=== PATIENT | female | born 1995 | race Caucasian/White ===

== ENCOUNTER 2019-03-25 17:20 | Emergency (ER) | payer BC ==
[~2019-03-25] VITALS: Ht 154.9 cm; Wt 47.7 kg
[2019-03-25 17:58] VITALS: BP 136/79; TEMP 98.1
[2019-03-25] MEDS ORDERED: DOXYCYCLINE HY100 MG PO (18:15)
[2019-03-25 19:06] VITALS: PULSE 72
== END 2019-03-25 19:04 | disposition home or self-care (01) ==
LOC: COL.ER 17:20
DX: S51.851A Open bite of right forearm, initial encounter (principal); W54.0XXA Bitten by dog, initial encounter